=== PATIENT | female | born 1955 | race Caucasian/White ===

== ENCOUNTER 2017-02-27 11:53 | Emergency (ER) | payer BC ==
[~2017-02-27] VITALS: Ht 172.7 cm; Wt 53.1 kg
[~2017-02-27 11:53] MED LIST: ALPRAZOLAM0.5 MG; ESTRACE42.5 GM
--- NOTE | 2017-02-28 08:18 | EKG ---
[facility] [address] [facility] [place], [place] [address] Signed Normal sinus rhythm Normal ECG No previous ECGs available Confirmed by GARCIA LEONARD MD ([id number]) on 02/28/2017 8:17:56 AM Electronically Signed By: GARCIA LEONARD MD 02/28/17 0818 PATIENT NAME: MERA CHILDS Daylin Electrocardiogram DATE OF : 55 PHYSICIAN: GARCIA LEONARD MD REPORT #: [id number] REPORT IS CONFIDENTIAL AND NOT TO BE RELEASED WITHOUT AUTHORIZATION
== END 2017-02-27 14:52 | disposition home or self-care (01) ==
LOC: ED 11:53
DX: I49.3 Ventricular premature depolarization (principal); Z90.710 Acquired absence of both cervix and uterus; Z79.899 Other long term (current) drug therapy
CPT/HCPCS: 80053; 84443; 84484; 85025; 93005; 93010; 99284

== ENCOUNTER 2018-10-17 12:28 | Emergency (ER) | payer BC ==
[~2018-10-17] VITALS: Ht 172.7 cm; Wt 51.7 kg
[2018-10-17] MEDS ORDERED: ALENDRONATE SOD70 MG PO (12:36)
== END 2018-10-17 14:44 | disposition home or self-care (01) ==
LOC: ED 12:28
DX: S02.2XXA Fracture of nasal bones, initial encounter for closed fracture (principal); S01.511A Laceration without foreign body of lip, initial encounter; S80.02XA Contusion of left knee, initial encounter; S80.01XA Contusion of right knee, initial encounter; W01.198A Fall on same level from slipping, tripping and stumbling with subsequent striking against other object, initial encounter; Z79.899 Other long term (current) drug therapy
CPT/HCPCS: 12011; 70450; 70486; 73560; 90471; 90715; 99284-25

== ENCOUNTER 2021-04-08 06:35 | Day surgery (SDC) | payer BC ==
[~2021-04-08] VITALS: Ht 167.6 cm; Wt 51.4 kg
[~2021-04-08 06:35] MED LIST changes: +ALENDRONATE SOD70 MG PO
--- NOTE | 2021-04-08 08:25 | NUR ---
04/08/21 0825 Gail Stein PT TO PACU SLEEPY BUT AROUSABLE DENIES PAIN OR NAUSEA.
--- NOTE | 2021-04-08 09:42 | OR ---
[facility] [address] [place], [place] [address] Signed DATE OF OPERATION: 04/08/2021 SURGEON: Eunice Frost MD PREOPERATIVE DIAGNOSES: 1. Sister with colonic polyps in her early 60s. 2. Internal hemorrhoids. POSTOPERATIVE DIAGNOSES: 1. 4 mm polyp at 5 cm. 2. Minimal internal hemorrhoids. PROCEDURE: Colonoscopy with hot biopsy and limited colonoscopy approximately 100 cm (transverse colon). ESTIMATED BLOOD LOSS: None. 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 She returns for a followup colonoscopy. We know her sister had colonic polyps in her early 60s. I helped Mera with a colonoscopy in 2008 at the age of 52. She had rectal bleeding at that time associated with internal hemorrhoids. She did well with Versed and fentanyl, although she was nauseated and vomiting for 12 hours after the procedure. We gave her Zofran and scopolamine with good results at that time. More recently, she has no lower GI complaints. She returns for a followup colonoscopy. Mera has had previous pelvic surgeries to include a hysterectomy. She is also quite thin with a body mass index of 17. In the office, I gave her a pamphlet on colonoscopy. We had reviewed that together. She understands the nature of the test. There is risk including, but not limited to gas bloating, crampy abdominal pain, bleeding, perforation requiring surgery, and missed diagnosis. She also understands the need for IV conscious sedation. She had expressed understanding and wished to proceed. PROCEDURE NOTE: Mera was taken into our endoscopy suite and placed in the left lateral decubitus position. She was given a total of 8 mg of Versed and 125 mcg of fentanyl. A digital rectal exam was performed and this was unremarkable. The adult colonoscope had been introduced and carefully advanced under direct visualization of the camera. Mera is quite thin and consequently her bowel wall is also quite thin. We very carefully took Electronically Signed By: EUNICE FROST MD 04/08/21 0942 PATIENT NAME: MERA CHILDS OPERATIVE REPORT DATE OF : 55 REPORT #: [id number] PHYSICIAN: EUNICE FROST MD PCP: GERMAINE ALONSO MD REPORT IS CONFIDENTIAL AND NOT TO BE RELEASED WITHOUT AUTHORIZATION [facility] [address] [place], [place] [address] Signed our time and pass the scope up to about 100 cm. At that point, the colon was angulated, we never could pass through this area. We gave additional sedation and rotated Mera into the supine position. We could see the tip of our light down in her pelvis. I suspect the transverse colon. I suspect this colon is adherent with some scar tissue down deep in the pelvis. We could never move that bowel out of that area to advance the scope. Her prep actually was quite excellent. However, Mera had was diaphoretic and bradycardic. As a result, we did not advance the scope any further. She probably should consider monitored anesthesia care in the future. She will also need a barium enema to evaluate the proximal portion of her colon. The entire colon was unremarkable other than it is quite thin. The rectum showed one tiny polyp which we removed with the help of a hot biopsy forceps. We retroflexed the scope and once again, she has very tiny internal hemorrhoid tissue. After this, the gas was suctioned out and the colonoscope removed. Overall, Mera tolerated procedure well. RECOMMENDATIONS: I will see Mera back in my office in 7 to 14 days to review her results. She will need a barium enema to evaluate the proximal 1/2 of her colon. She should consider monitored anesthesia care in the future. Eunice Frost MD ALB/MODL /[id number] cc: MD Eunice Lima MD Copies: HUYEN SOLIS MD, ANDREW L MD ~ Electronically Signed By: EUNICE FROST MD 04/08/21 0942 PATIENT NAME: MERA CHILDS OPERATIVE REPORT DATE OF : 55 REPORT #: [id number] PHYSICIAN: EUNICE FROST MD PCP: GERMAINE ALONSO MD REPORT IS CONFIDENTIAL AND NOT TO BE RELEASED WITHOUT AUTHORIZATION
--- NOTE | 2021-04-09 11:16 | PATH ---
[facility] [address] [place], [place] [address] Signed SPECIMEN(S): A RECTAL POLYP AT 5 CM SPECIMEN SOURCE: A. RECTAL POLYP AT 5 CM CLINICAL HISTORY: Screening colonoscopy, family history of polyps. MICROSCOPIC DESCRIPTION: Histologic sections of all submitted blocks are examined by light microscopy. These findings, together with the gross examination, support the pathologic diagnosis. FINAL PATHOLOGIC DIAGNOSIS: Rectum, 5 cm, polypectomy: - Hyperplastic polyp. BRP:cml:C2NR GROSS DESCRIPTION: The specimen, labeled "MC, 5 mm rectal polyp," is received in formalin and consists of one perez soft tissue fragments that measures 0.5 cm in greatest dimension. The specimen is entirely submitted in cassette (A1). AI (under the direct supervision of a pathologist) The Gross Description was prepared using a voice recognition system. The report was reviewed for accuracy; however, sound-alike word errors, addition and/or deletions may occur. If there is any question about this report, please contact Client Services. PERFORMING LABORATORY: The technical component was performed by [email or web address], [address] [place] [id number] (Sliver Lap Tender: Li Lemos MD; CLIA# [id number]). [email or web address], [address] [address] (CLIA# [id number]). Diagnostician: Brayden Sands MD Pathologist Electronically Signed 04/09/2021 Copies: PATIENT NAME: MERA CHILDS PATHOLOGY DATE OF : 55 REPORT #: [id number] PHYSICIAN: ERNESTO PATHOLOGY PCP: GERMAINE ALONSO MD REPORT IS CONFIDENTIAL AND NOT TO BE RELEASED WITHOUT AUTHORIZATION [address] [address] Signed ~ PATIENT NAME: MERA CHILDS PATHOLOGY DATE OF : 55 REPORT #: [id number] PHYSICIAN: ERNESTO PATHOLOGY PCP: GERMAINE ALONSO MD REPORT IS CONFIDENTIAL AND NOT TO BE RELEASED WITHOUT AUTHORIZATION
== END 2021-04-08 09:55 | disposition home or self-care (01) ==
LOC: DS 06:35 → OPS 06:35 → DS 07:30 → OPS 09:00
PROVIDERS: ATTEND Colon & Rectal Surgery
PROC: 0DBP8ZZ Excision of Rectum, Via Natural or Artificial Opening Endoscopic (ICD-10-PCS; principal; 2021-04-08 07:30)
DX: K62.1 Rectal polyp (principal); K64.8 Other hemorrhoids; K56.609 Unspecified intestinal obstruction, unspecified as to partial versus complete obstruction; R61 Generalized hyperhidrosis; R00.1 Bradycardia, unspecified; M81.0 Age-related osteoporosis without current pathological fracture; Z83.71 Family history of colonic polyps; Z88.8 Allergy status to other drugs, medicaments and biological substances
CPT/HCPCS: 99153; G0500; J2250; J2405; J3010; J7121